=== PATIENT | male | born 1940 | race Caucasian/White ===

== ENCOUNTER 2020-08-12 13:55 | Emergency (ER) | payer MEDICARE ==
[~2020-08-12] VITALS: Ht 180.3 cm; Wt 100.0 kg
[2020-08-12] MEDS ORDERED: TAMSULOSIN HCL0.4 MG PO (15:29)
[2020-08-12] MEDS ORDERED: FUROSEMIDE20 MG PO (15:30)
[2020-08-12] MEDS ORDERED: PRAVASTATIN20 MG PO (15:30)
[2020-08-12] MEDS ORDERED: TOPROL XL50 MG PO (15:30)
[2020-08-12] MEDS ORDERED: METOLAZONE2.5 MG PO (15:32)
[2020-08-12] MEDS ORDERED: DILTIAZEM HCL360 M2 PO (15:33)
[2020-08-12] MEDS ORDERED: CLOPIDOGREL75 MG PO (15:33)
[2020-08-12] MEDS ORDERED: TOUJEO MAX300 UNIT/M SC (15:34)
[2020-08-12] MEDS ORDERED: NOVOLOG FL100 UNIT/M (15:35)
[2020-08-12] MEDS ORDERED: VICTOZA18 MG/3 ML SC (15:35)
[2020-08-12 15:36] LABS: HEMATOCRIT 39.5 % (39.0-50.0); HEMOGLOBIN 12.5 g/dl (14.0-18.0); IMMATURE GRANULOCYTES 0.4 % (0.0-5.0); MEAN CELL VOLUME 95.9 fL CALC (80.0-100.0); MEAN CORPUSCULAR HGB 30.3 pG CALC (26.0-32.0); MEAN CORPUSCULAR HGB CONC 31.6 g/dL CAL (32.0-36.0); NEUT# 9.03 thou/uL (1.82-7.42); RED BLOOD COUNT 4.12 mill/uL (4.70-6.10); RED CELL DISTRI WIDTH 13.7 % (11.5-15.5)
[2020-08-12 15:54] LABS: ALBUMIN 4.3 g/dL (3.2-5.0); BILIRUBIN, TOTAL 0.8 mg/dL (0.0-1.4); CREATININE 2.6 mg/dL (0.7-1.3); POTASSIUM 3.8 mmol/l (3.5-5.1); TOTAL PROTEIN 7.6 g/dL (6.3-8.2)
[2020-08-12 15:56] LABS: ACT PARTIAL THROMBO TIME 27.2 SECONDS (20.0-32.5); INTERNATIONAL NORMALIZED RATIO 1.1 RATIO (0.7-1.3); PROTHROMBIN TIME 10.7 SECONDS (9.0-12.5)
[2020-08-12 20:14] VITALS: BP 156/73
== END 2020-08-12 20:13 | disposition short-term general hospital (02) ==
LOC: ED 13:55
DX: E11.52 Type 2 diabetes mellitus with diabetic peripheral angiopathy with gangrene (principal); I70.262 Atherosclerosis of native arteries of extremities with gangrene, left leg; L03.116 Cellulitis of left lower limb; Z79.4 Long term (current) use of insulin